=== PATIENT | female | born 1960 | race Caucasian/White ===

== ENCOUNTER 2024-01-22 07:10 | Outpatient (CLI) | payer BC ==
[~2024-01-22] VITALS: Ht 190.5 cm; Wt 70.8 kg
[2024-01-22 07:33] LABS: TOTAL HEMOGLOBIN 13.6 G/dl (12.0-16.0)
[2024-01-22] MEDS: albuterol 2.5 MG/3 ML nebule NEB ONE (08:04)
[2024-01-22 08:09] VITALS: PULSE 63; RESP 14; O2SAT 97
== END 2024-01-22 23:59 | disposition home or self-care (01) ==
LOC: RT 07:10
PROVIDERS: ATTEND Internal Medicine
DX: R94.2 Abnormal results of pulmonary function studies (principal); R06.02 Shortness of breath
CPT/HCPCS: 85018; 94060; 94727; 94729; 94760